=== PATIENT | female | born 1940 | race Caucasian/White ===

== ENCOUNTER 2021-04-01 06:40 | Day surgery (SDC) | payer MEDICARE, BC ==
[~2021-04-01] VITALS: Ht 165.1 cm; Wt 58.3 kg
[2021-04-01] VITALS (8 sets, daily range): BP systolic 147–190; BP diastolic 74–95
[~2021-04-01 06:40] MED LIST: AMLO5TAB4 PO; ASPI81TA52 PO; CLOB15CR4 TOP; CLOP75TA15 PO; EVOL140S2 SQ; FLUO10CA30 PO; HYDR200T84 PO; METO50TA17 PO; NAPR220T67 PO; PANT40TA54 PO
[2021-04-01] MEDS ORDERED: normal saline 1,000 ML IV SCH (07:15)
[2021-04-01] MEDS ORDERED: diphenhydrAMINE 25mg capsule PO PRN (07:15)
[2021-04-01] MEDS ORDERED: VALS160T2 PO (07:41)
[2021-04-01] MEDS ORDERED: AMOX500C2 PO (07:41)
[2021-04-01 08:05] LABS: BASOPHILS # (AUTO) 0.1 X10'3 (0-0.2); BASOPHILS % (AUTO) 1.4 % (0-1); EOSINOPHILS # (AUTO) 0.2 X10'3 (0-0.9); EOSINOPHILS % (AUTO) 4.1 % (0-6); HEMATOCRIT 40.9 % (35.0-45.0); LYMPHOCYTES # (AUTO) 0.7 X10'3 (1.1-4.8); LYMPHOCYTES % (AUTO) 16.2 % (21-51); MEAN CORPUSCULAR HEMOGLOBIN 25.9 PG (27.0-31.0); MEAN CORPUSCULAR HGB CONC 31.7 g/dL (33.0-36.5); MEAN CORPUSCULAR VOLUME 81.6 FL (78-98); MONOCYTES # (AUTO) 0.3 X10'3 (0-0.9); MONOCYTES % (AUTO) 7.3 % (2-12); PLATELET COUNT 223 X10'3 (140-440); RED BLOOD COUNT 5.01 X10'6 (4.20-5.60); RED CELL DISTRIBUTION WIDTH 19.7 % (11.5-14.5); WHITE BLOOD COUNT 4.2 X10'3 (4.5-11.0)
[2021-04-01 08:13] LABS: ALBUMIN 3.6 G/DL (3.4-5.0); ANION GAP 10 (8-16); BLOOD UREA NITROGEN 21 MG/DL (7-18); BUN/CREATININE RATIO 20.2 (6.6-38.0); CALCIUM 9.1 MG/DL (8.5-10.1); CHLORIDE 103 MMOL/L (99-107); CREATININE 1.04 MG/DL (0.40-0.90); GLUCOSE 85 MG/DL (70-104); MAGNESIUM 2.2 MG/DL (1.5-2.4); POTASSIUM 4.3 MMOL/L (3.5-5.1); SODIUM 138 MMOL/L (135-145); TOTAL CARBON DIOXIDE 24.6 MMOL/L (24-32); eGFR 51 ML/MIN
[2021-04-01] MEDS ORDERED: heparin 1,000unit/ml 10ml vial 10 ML ONE (08:15)
[2021-04-01] MEDS ORDERED: iohexol 350 MG/ML 50ML vial IV ONE (08:15)
[2021-04-01] MEDS ORDERED: midazolam 1 mg/ML 2ml injection ONE ×4 (08:15→09:41)
[2021-04-01] MEDS ORDERED: iohexol 350MG/ML 100ml bottle IV ONE ×2 (08:15→09:37)
[2021-04-01] MEDS ORDERED: LIDOcaine 1% (10mg/ml)w/preservative injection 20ml MDV ONE (08:15)
[2021-04-01] MEDS ORDERED: fentaNYL/PF 50MCG/1 ML 2ML syringe ONE (08:15)
[2021-04-01 09:43] LABS: ANISOCYTOSIS 2+; PLATELET ESTIMATE NORMAL
[2021-04-01 09:44] LABS: SCHISTOCYTES FEW
--- NOTE | 2021-04-01 10:15 | NUR ---
Pt back on unit. Denies pain, site stable, pulses checked and present, vs stable as charted. Fluids running as ordered.
[2021-04-01] MEDS ORDERED: acetaminophen 325mg tablet PO PRN (10:25)
[2021-04-01] MEDS ORDERED: HYDROcodone/acetaminophen 5mg/325mg tablet PO PRN (10:25)
[2021-04-01] MEDS ORDERED: normal saline 1000ml 1,000 ML IV SCH (10:25)
[2021-04-01] MEDS ORDERED: HYDROcodone/acetaminophen 10/325mg tab PO PRN (10:25)
[2021-04-01] MEDS ORDERED: proCHLORperazine 10 MG/2 ml inj IV PRN (10:25)
[2021-04-01] MEDS ORDERED: ondansetron/PF 4mg/2ml inj IV PRN (10:25)
--- NOTE | 2021-04-01 10:47 | NUR ---
Pt laying supine in bed. Site stable, MARYBETH CD&I, no s/s of bleeding or infection. Pt eating lunch tray. Family notified of DC time. Spouse called back and states he will be here at 1300.
--- NOTE | 2021-04-01 10:58 | NUR ---
Problems reprioritized. Patient report given, questions answered & plan of care reviewed with Shira MENENDEZ.
--- NOTE | 2021-04-01 11:00 | NUR ---
I have received report from Clark RN and had the opportunity to ask questions and assume patient care.
== END 2021-04-01 14:05 | disposition home or self-care (01) ==
LOC: SSTAY O 06:40 → EDSEX 06:40 → SSTAY O 14:05
PROVIDERS: ATTEND Internal Medicine Cardiovascular Disease
DX: R94.39 Abnormal result of other cardiovascular function study (principal); R06.09 Other forms of dyspnea; I25.118 Atherosclerotic heart disease of native coronary artery with other forms of angina pectoris; I25.82 Chronic total occlusion of coronary artery; I42.0 Dilated cardiomyopathy; I10 Essential (primary) hypertension; I08.0 Rheumatic disorders of both mitral and aortic valves; E78.5 Hyperlipidemia, unspecified; I25.2 Old myocardial infarction; K21.9 Gastro-esophageal reflux disease without esophagitis; M19.90 Unspecified osteoarthritis, unspecified site; Z95.1 Presence of aortocoronary bypass graft; Z95.2 Presence of prosthetic heart valve; Z86.73 Personal history of transient ischemic attack (TIA), and cerebral infarction without residual deficits; Z79.01 Long term (current) use of anticoagulants; Z79.82 Long term (current) use of aspirin; Z79.899 Other long term (current) drug therapy; Z79.2 Long term (current) use of antibiotics; Z96.653 Presence of artificial knee joint, bilateral; Z98.49 Cataract extraction status, unspecified eye; Z98.890 Other specified postprocedural states; Z88.8 Allergy status to other drugs, medicaments and biological substances; Z88.1 Allergy status to other antibiotic agents
CPT/HCPCS: 36415; 80048; 83735; 85025; 85610; 93005; 93461; 99152; 99153; C1760; C1769; C1894; J1644; J2001; J2250; J3010; J7030; Q0163; Q9967; 85008; A4620; A6258; C1751

== ENCOUNTER 2021-06-10 05:57 | Day surgery (SDC) | payer MEDICARE, BC ==
[2021-06-04 14:20] LABS: BASOPHILS # (AUTO) 0.1 X10'3 (0-0.2); BASOPHILS % (AUTO) 1.1 % (0-1); EOSINOPHILS # (AUTO) 0.1 X10'3 (0-0.9); EOSINOPHILS % (AUTO) 1.5 % (0-6); LYMPHOCYTES # (AUTO) 0.8 X10'3 (1.1-4.8); LYMPHOCYTES % (AUTO) 12.9 % (21-51); MEAN CORPUSCULAR HEMOGLOBIN 27.8 PG (27.0-31.0); MEAN CORPUSCULAR HGB CONC 32.6 g/dL (33.0-36.5); MEAN CORPUSCULAR VOLUME 85.3 FL (78-98); MEAN PLATELET VOLUME 8.3 FL (7.4-10.4); MONOCYTES # (AUTO) 0.4 X10'3 (0-0.9); MONOCYTES % (AUTO) 6.1 % (2-12); NEUTROPHILS # (AUTO) 4.6 X10'3 (1.8-7.7); NEUTROPHILS % (AUTO) 78.4 % (42-75); PRE OP HEMATOCRIT 39.1 % (35.0-45.0); PRE OP HEMOGLOBIN 12.7 g/dL (12.0-16.0); PRE OP PLATELET COUNT 243 X10'3 (140-440); RED BLOOD COUNT 4.58 X10'6 (4.20-5.60); RED CELL DISTRIBUTION WIDTH 18.4 % (11.5-14.5)
[2021-06-04 14:32] LABS: ALBUMIN 3.7 G/DL (3.4-5.0); ALKALINE PHOSPHATASE 83 IU/L (46-116); BLOOD UREA NITROGEN 13 MG/DL (7-18); BUN/CREATININE RATIO 12.5 (6.6-38.0); CHLORIDE 108 MMOL/L (99-107); CREATININE 1.04 MG/DL (0.40-0.90); PRE OP ALT 26 U/L (30-65); PRE OP ANION GAP 11 (8-16); PRE OP AST 24 U/L (10-37); PRE OP BILIRUB, TOTAL 0.4 MG/DL (0.0-1.0); PRE OP GLUCOSE 102 MG/DL (70-104); PRE OP SODIUM 144 MMOL/L (135-145); TOTAL CARBON DIOXIDE 25.1 MMOL/L (24-32); TOTAL PROTEIN 7.5 G/DL (6.4-8.2); eGFR 51 ML/MIN
[2021-06-04 14:33] LABS: PRE OP POTASSIUM 3.2 MMOL/L (3.4-5.1)
[~2021-06-10] VITALS: Ht 167.6 cm; Wt 62.8 kg
[2021-06-10] VITALS (12 sets, daily range): BP systolic 170–192; BP diastolic 81–110
[~2021-06-10 05:57] MED LIST changes: +AMLO1TAB23 PO; -AMLO5TAB4 PO; -ASPI81TA52 PO; -CLOB15CR4 TOP; +DOCUMENT DATE & TIME OF BETA-BLOCKER PO ONE; -FLUO10CA30 PO; +HYDR12.55 PO; +HYDR200T80 PO; -HYDR200T84 PO; -NAPR220T67 PO; +ROSU40TA PO; +[UNRECOGNIZED DRUG - CODE]; +[UNRECOGNIZED DRUG - OTHER] PO; +albuterol 2.5 MG/3 ML nebule NEB PRN; +cefazolin/dext.iso 2gm/100ml IV ONE; +famotidine 20mg tablet PO ONE; +ringers solution, lacted 1,000 ML IV SCH
[2021-06-10] MEDS ORDERED: BUPIVAcaine/PF 2.5mg/ml (0.25%) 10ml vial ONE (06:41)
[2021-06-10] MEDS ORDERED: ringers solution, lacted 1,000 ML IV SCH (07:15)
[2021-06-10] MEDS ORDERED: morphine 4 MG/ML inj SYRINge IV PRN (07:15)
[2021-06-10] MEDS ORDERED: labetalol 20mg/4ml (5mg/ml) syringe IV PRN (07:15)
[2021-06-10] MEDS ORDERED: morphine 2 MG/ML inj. syringe IV PRN (07:15)
[2021-06-10] MEDS ORDERED: ondansetron/PF 4mg/2ml inj IV PRN (07:15)
[2021-06-10] MEDS ORDERED: fentaNYL/PF 50MCG/1 ML 2ML syringe IV PRN ×2 (07:15)
[2021-06-10] MEDS ORDERED: LIDOcaine 0.5% (5mg/ml) 50ml vial ONE (07:19)
[2021-06-10 08:30] LABS: ISTAT CREATININE 1.1 mg/dL (0.6-1.1); ISTAT HGB 11.9 g/dl (12.0-16.0); ISTAT IONIZED CALCIUM 1.31 mmol/L (1.03-1.32); ISTAT K 3.5 mmol/L (3.5-5.1); POC BUN/CREATININE RATIO 17.3 (6.6-38.0)
[2021-06-10] MEDS ORDERED: midazolam 1 mg/ML 2ml injection ONE (09:20)
[2021-06-10] MEDS ORDERED: fentaNYL/PF 50MCG/1 ML 2ML syringe ONE (09:20)
--- NOTE | 2021-06-10 09:33 | NUR ---
Received from OR via [facility], accompanied by Anesthesiologist DR AVERY and report given by Anesthesiologist AND COOKING TEACHER. PT AWAKE, DENIES PAIN, RIGHT HAND/WRIST W/BIAS WRAP COVERING, INCISION/DRSG CDI. 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 Addendum: 06/10/21 at 1006 by Hailey Prather RN Amended: Links added.
[2021-06-10] MEDS: hydrALAZINE 20mg/ml inj. IV PRN ×2 (10:07→10:28)
--- NOTE | 2021-06-10 11:25 | NUR ---
D/C INSTRUCTIONS GIVEN AND GONE OVER W/PT WHO VERBALIZED UNDERSTANDING. PT D/CD TO HOME VIA W/C TO PRIVATE VEHICLE W/O INCIDENT. Addendum: 06/10/21 at 1127 by Hailey Prather RN Amended: Links added.
== END 2021-06-10 11:13 | disposition home or self-care (01) ==
LOC: PAS 05:57
PROVIDERS: ATTEND Orthopaedic Surgery Hand Surgery
DX: G56.01 Carpal tunnel syndrome, right upper limb (principal); Z20.822 Contact with and (suspected) exposure to COVID-19; I10 Essential (primary) hypertension; I25.2 Old myocardial infarction; I25.10 Atherosclerotic heart disease of native coronary artery without angina pectoris; I42.9 Cardiomyopathy, unspecified; K21.9 Gastro-esophageal reflux disease without esophagitis; M19.90 Unspecified osteoarthritis, unspecified site; Z98.890 Other specified postprocedural states; Z72.89 Other problems related to lifestyle; Z96.659 Presence of unspecified artificial knee joint; Z95.1 Presence of aortocoronary bypass graft; Z95.2 Presence of prosthetic heart valve; Z98.49 Cataract extraction status, unspecified eye; Z80.9 Family history of malignant neoplasm, unspecified
CPT/HCPCS: 36415; 64721; 80047; 80053; 85025; J0360; J2001; J2250; J3010; J3490; U0003; U0005; Z7506; Z7512; A4215; J7120

== ENCOUNTER 2021-10-07 06:20 | Day surgery (SDC) | payer MEDICARE, BC ==
[2021-10-07] VITALS (7 sets, daily range): BP systolic 113–184; BP diastolic 58–93
[~2021-10-07] VITALS: Ht 167.6 cm; Wt 59.0 kg
[~2021-10-07 06:20] MED LIST changes: -DOCUMENT DATE & TIME OF BETA-BLOCKER PO ONE; -albuterol 2.5 MG/3 ML nebule NEB PRN; -cefazolin/dext.iso 2gm/100ml IV ONE; -famotidine 20mg tablet PO ONE; -ringers solution, lacted 1,000 ML IV SCH
[2021-10-07] MEDS ORDERED: cefazolin/dext.iso 2gm/50ml 50 ML IV ONE (06:45)
[2021-10-07] MEDS ORDERED: vancomycin/NS 1 GM ADD-VANTAGE 250 ML IV ONE (06:45)
[2021-10-07] MEDS ORDERED: normal saline 1000ml 1,000 ML IV SCH ×2 (06:45→11:45)
[2021-10-07] MEDS ORDERED: ALBU18HF2 (07:04)
[2021-10-07] MEDS ORDERED: BUDE3CAP11 (07:04)
[2021-10-07] MEDS ORDERED: SACU1TAB7 PO (07:04)
[2021-10-07] MEDS ORDERED: ASPI-611 PO (07:04)
[2021-10-07] MEDS ORDERED: HYDR-3972 PO (07:04)
[2021-10-07] MEDS ORDERED: METO-411 PO (07:04)
[2021-10-07] MEDS ORDERED: ZALE10CA PO (07:04)
[2021-10-07 07:14] LABS: BASOPHILS # (AUTO) 0.1 X10'3 (0-0.2); BASOPHILS % (AUTO) 1.3 % (0-1); EOSINOPHILS # (AUTO) 0.1 X10'3 (0-0.9); EOSINOPHILS % (AUTO) 2.1 % (0-6); HEMATOCRIT 34.5 % (35.0-45.0); HEMOGLOBIN 11.5 g/dl (12.0-16.0); LYMPHOCYTES # (AUTO) 0.6 X10'3 (1.1-4.8); LYMPHOCYTES % (AUTO) 10.5 % (21-51); MEAN CORPUSCULAR HEMOGLOBIN 27.5 PG (27.0-31.0); MEAN CORPUSCULAR HGB CONC 33.4 g/dL (33.0-36.5); MEAN CORPUSCULAR VOLUME 82.1 FL (78-98); MEAN PLATELET VOLUME 7.8 FL (7.4-10.4); MONOCYTES # (AUTO) 0.4 X10'3 (0-0.9); MONOCYTES % (AUTO) 6.9 % (2-12); NEUTROPHILS # (AUTO) 4.3 X10'3 (1.8-7.7); NEUTROPHILS % (AUTO) 79.2 % (42-75); PLATELET COUNT 264 X10'3 (140-440); RED CELL DISTRIBUTION WIDTH 17.1 % (11.5-14.5); WHITE BLOOD COUNT 5.4 X10'3 (4.5-11.0)
[2021-10-07 07:36] LABS: ALBUMIN 3.7 G/DL (3.4-5.0); ANION GAP 9 (8-16); BLOOD UREA NITROGEN 16 MG/DL (7-18); BUN/CREATININE RATIO 17.2 (6.6-38.0); CALCIUM 9.3 MG/DL (8.5-10.1); CHLORIDE 101 MMOL/L (99-107); CREATININE 0.93 MG/DL (0.40-0.90); GLUCOSE 101 MG/DL (70-104); MAGNESIUM 1.9 MG/DL (1.5-2.4); POTASSIUM 3.2 MMOL/L (3.5-5.1); SODIUM 138 MMOL/L (135-145); eGFR 58 ML/MIN
[2021-10-07] MEDS ORDERED: metoprolol tartrate 25mg tablet PO ONE (07:40)
[2021-10-07] MEDS ORDERED: cloNIDine 0.1 mg tablet PO ONE (07:40)
[2021-10-07] MEDS ORDERED: fentaNYL/PF 50MCG/1 ML 2ML syringe ONE (08:22)
[2021-10-07] MEDS ORDERED: midazolam 1 mg/ML 2ml injection ONE ×5 (08:22→10:55)
[2021-10-07] MEDS ORDERED: LIDOcaine 1% w/EPI 1:100,000 30ml vial (MDV) ONE ×2 (08:22→10:23)
[2021-10-07] MEDS ORDERED: vancomycin 1,000mg inj ONE (08:22)
[2021-10-07] MEDS ORDERED: iohexol 350 MG/ML 50ML vial IV ONE (08:25)
--- NOTE | 2021-10-07 09:00 | NUR ---
Dr Bennett at bedside, Pt taken to labour market economist to have pacemaker placed.
[2021-10-07] MEDS ORDERED: LIDOCAINE 1%/EPI 1:100,000 inj. 10 ML multi-dose vial ONE (09:33)
[2021-10-07] MEDS ORDERED: HYDROmorphone 1 mg/ml syringe ONE (09:47)
--- NOTE | 2021-10-07 11:33 | NUR ---
pacemaker rep at bedside to barak pt.
--- NOTE | 2021-10-07 12:34 | NUR ---
called xray 2nd time for cxr by Kush
== END 2021-10-07 13:30 | disposition home or self-care (01) ==
LOC: SSTAY O 06:20
PROVIDERS: ATTEND Internal Medicine Cardiovascular Disease
DX: I42.0 Dilated cardiomyopathy (principal); I50.22 Chronic systolic (congestive) heart failure; I44.1 Atrioventricular block, second degree; I44.7 Left bundle-branch block, unspecified; I08.0 Rheumatic disorders of both mitral and aortic valves; I25.118 Atherosclerotic heart disease of native coronary artery with other forms of angina pectoris; E78.5 Hyperlipidemia, unspecified; Z95.1 Presence of aortocoronary bypass graft; Z95.2 Presence of prosthetic heart valve; Z86.73 Personal history of transient ischemic attack (TIA), and cerebral infarction without residual deficits; Z88.1 Allergy status to other antibiotic agents; Z88.8 Allergy status to other drugs, medicaments and biological substances; Z98.49 Cataract extraction status, unspecified eye; Z96.659 Presence of unspecified artificial knee joint; Z79.899 Other long term (current) drug therapy
CPT/HCPCS: 33225; 33249; 36415; 71045; 80048; 83735; 85025; 85610; 93005; C1769; C1882; C1887; C1894; C1895; C1900; J0690; J1170; J2250; J3010; J3370; J3490; J7030; Q9967; 70450; 99152; 99153; A4565; A4620; A6258